=== PATIENT | male | born 1955 | race Caucasian/White ===

== ENCOUNTER 2016-11-27 10:26 | Observation (INO) | payer OTHER ==
[~2016-11-27] VITALS: Ht 182.9 cm; Wt 89.3 kg
[2016-11-27] MEDS ORDERED: SODIUM CHLORIDE 0.9% 1,000 ML IV ONE (11:11)
[2016-11-27] MEDS ORDERED: NITR2.5C8 PO (11:14)
[2016-11-27] MEDS ORDERED: METO50TA82 PO (11:14)
[2016-11-27] MEDS ORDERED: ASPI-515 PO (11:14)
[2016-11-27 11:58] LABS: HEMATOCRIT 44.8 % (39.2-51.8); HEMOGLOBIN 15.4 g/dL (13.7-18.0); WHITE BLOOD COUNT 8.7 x10^3/uL (3.4-10)
[2016-11-27 12:09] LABS: BLOOD UREA NITROGEN 16 mg/dL (7-18)
[2016-11-27] MEDS ORDERED: FENTANYL PF 100 MCG/2ML ONE (12:23)
[2016-11-27] MEDS ORDERED: VERAPAMIL 2.5 MG/ML, 2ML ONE (12:23)
[2016-11-27] MEDS ORDERED: MIDAZOLAM 1 MG/ML, 5ML ONE (12:23)
[2016-11-27] MEDS ORDERED: HEPARIN 1,000 UNITS/ML, 10ML ONE (12:24)
[2016-11-27] MEDS ORDERED: LIDOCAINE 2%, 20ML ONE (12:24)
[2016-11-27] MEDS ORDERED: BIVALIRUDIN 250 MG ONE (12:57)
[2016-11-27] MEDS ORDERED: TICAGRELOR 90 MG TABLET ONE (13:05)
[2016-11-27] MEDS: SODIUM CHLORIDE 0.9% 1,000 ML IV SCH ×2 (13:30→19:16)
[2016-11-27] MEDS ORDERED: PLEASE ENTER HEIGHT AND WEIGHT MC SCH (14:00)
[2016-11-27 15:04] VITALS: BP 149/83
[2016-11-27] MEDS ORDERED: ACETAMINOPHEN 500 MG TABLET PO PRN (15:30)
[2016-11-27] MEDS ORDERED: ACETAMINOPHEN 325 MG TABLET ONE ×2 (15:32→15:33)
[2016-11-27] MEDS: TICAGRELOR 90 MG TABLET PO SCH (19:59)
[2016-11-27 20:00] VITALS: BP 151/80
[2016-11-27] MEDS: METOPROLOL TARTRATE 50 MG TABLET PO SCH (20:00)
[2016-11-27] MEDS ORDERED: NICOTINE 7 MG/24 HR PATCH.TD24 TD SCH (20:30)
[2016-11-27] MEDS ORDERED: ATORVASTATIN 40 MG TABLET PO SCH (21:00)
[2016-11-28 02:00] VITALS: BP 153/86
[2016-11-28] MEDS: SODIUM CHLORIDE 0.9% 1,000 ML IV SCH (03:47)
[2016-11-28] MEDS ORDERED: TICA90TA PO (08:06)
[2016-11-28] MEDS ORDERED: ATOR40TA78 PO (08:06)
[2016-11-28 08:09] VITALS: BP 153/96
[2016-11-28] MEDS: METOPROLOL TARTRATE 50 MG TABLET PO SCH (08:56)
[2016-11-28] MEDS: TICAGRELOR 90 MG TABLET PO SCH (08:57)
[2016-11-28] MEDS ORDERED: ASPIRIN 81 MG TABLET EC PO SCH (09:00)
[2016-11-28] MEDS ORDERED: PNEUMOCOCCAL 23 VACCINE IM-VACC ONE (11:00)
== END 2016-11-28 11:00 | disposition home or self-care (01) ==
LOC: CACL 10:26 → 5SO 13:30
PROVIDERS: ADMIT Internal Medicine Cardiovascular Disease; ATTEND Internal Medicine Cardiovascular Disease
DX: I25.110 Atherosclerotic heart disease of native coronary artery with unstable angina pectoris (principal); R94.39 Abnormal result of other cardiovascular function study; F17.210 Nicotine dependence, cigarettes, uncomplicated
CPT/HCPCS: 36415; 80048; 85025; 90471; 90732; 93458; 99156; 99157; C1725; C1769; C1874; C1887; C1894; C9600; G0378; J0583; J1644; J2250; J3010; J3490; Q9967